=== PATIENT | male | born 1965 | race African-American/Black ===

== ENCOUNTER 2022-04-21 11:42 | Emergency (ER) | payer OTHER ==
[2022-04-21 12:07] VITALS: BP 140/79; PULSE 71; RESP 18; TEMP 98; BMI 19.8
[2022-04-21] MEDS ORDERED: NAPROXEN 500 MG TABLET PO ONE (13:24)
[2022-04-21] MEDS ORDERED: NAPROXEN 500 MG TABLET ONE (13:28)
== END 2022-04-21 15:39 | disposition home or self-care (01) ==
LOC: JER 11:42 → JERFT 11:42
DX: M54.2 Cervicalgia (principal); V49.40XA Driver injured in collision with unspecified motor vehicles in traffic accident, initial encounter
CPT/HCPCS: 72125-TC; 99284-25